=== PATIENT | male | born 1990 | race Caucasian/White ===

== ENCOUNTER 2022-10-20 21:43 | Emergency (ER) | payer OTHER | END 2022-10-20 22:29 | LOC: NAV ERS 21:43 | DX: S61.210A Laceration without foreign body of right index finger without damage to nail, initial encounter (principal); S61.212A Laceration without foreign body of right middle finger without damage to nail, initial encounter; Z23 Encounter for immunization; W26.9XXA Contact with unspecified sharp object(s), initial encounter | CPT/HCPCS: 12002; 90471 ==